=== PATIENT | male | born 1990 | race Caucasian/White ===

== ENCOUNTER → 2020-06-11 14:02 | Outpatient (CLI) | payer BC, SELFPAY ==
[2020-06-11 15:41] LABS: Coronavirus 19 IgG Antibody Negative (Negative); Coronavirus 19 IgM Antibody Negative (Negative)
== END ==
PROVIDERS: Visit Provider Urology
DX: Z01.818 Encounter for other preprocedural examination (principal); Z30.2 Encounter for sterilization; Z20.828 Contact with and (suspected) exposure to other viral communicable diseases
CPT/HCPCS: 36415; 86328

== ENCOUNTER 2020-06-12 09:28 | Day surgery (SDC) | payer BC, SELFPAY ==
[2020-06-09 10:29] VITALS: BMI 34.5
[2020-06-12 09:40] VITALS: BP 123/85; PULSE 73; RESP 18; TEMP 36.2; O2SAT 99
[2020-06-12 10:31] VITALS: BP 131/76; PULSE 58; RESP 18; TEMP 36.7; O2SAT 97
[2020-06-12 10:44] VITALS: BP 144/83; PULSE 64; RESP 18; O2SAT 97
--- NOTE | 2020-06-12 16:12 | HMH.OPNOTE ---
Date of procedure: 06/12/20 Pre-op Diagnosis:: Desires sterilization Post-op Diagnosis:: Same Procedure performed:: Bilateral vasectomy Surgeon:: Paras Jasso MD Anesthesia: local Estimated blood loss (mL): 2 Clinical Note:: 30-year-old white male seen recently for vasectomy consultation. Patient presents for procedure today Operative findings:: Patient with normal scrotal and testicular examination. Procedure went well and no complications were encountered. Operative note:: Patient taken to the vasectomy suite after informed consent was obtained. On the stretcher he was prepped and draped in the standard surgical fashion. Physical examination of the scrotum and testicles were normal. The left vas was palpated and brought up to the anterior and superior midline raphae. Local anesthetic was placed under the midline raphae and around the left basal structure. After adequate analgesia a midline incision was made and a tenaculum was then used to grasp the left vas and it was brought up through the incision. The vasal sheath was then incised and the vas proper was dissected from its adventitial layer. 1 Hemoclip was placed distally and 2 were placed proximally on the vasa. A 1 cm segment was then excised and the vasa lumens were cauterized. Hemostasis achieved and the left vas dropped back in the left hemiscrotum. The right vas was then brought up to the midline raphae and local anesthetic was placed. Identical procedure was performed as on the left side. Stasis achieved in the right vas dropped back into the hemiscrotum. A 3-0 chromic was placed into the skin and a horizontal mattress fashion. A compression dressing was then applied. The patient tolerated procedure well and there is minimal blood loss. Condition: stable Disposition: same day Specimens:: vasal segments were not sent to pathology Complications:: None
== END 2020-06-12 10:44 | disposition home or self-care (01) ==
PROVIDERS: PCP Pediatrics; Visit Provider Urology
PROC: (CPT 55250; principal; 2020-06-12 10:00)
DX: Z30.2 Encounter for sterilization (principal)
CPT/HCPCS: 55250

== ENCOUNTER 2021-06-26 13:48 | Emergency (ER) | payer OTHER, SELFPAY ==
--- NOTE | 2021-06-26 13:47 | ECG_ITS ---
APPROVED REPORT Exam: Resting ECG HR:71 bpm ECG Measurements Heart Rate 71 AXES VT 162 P 41 QRSd 105 QRS 92 QT 365 T 20 QTc 387 Conclusion SINUS RHYTHM BORDERLINE RIGHT AXIS DEVIATION [QRS AXIS > 90] BORDERLINE ECG UNCONFIRMED REPORT Electronically signed by : Young Singh MD 07/01/2021 19:07:15
[2021-06-26 14:00] VITALS: BP 166/100; PULSE 76; RESP 16; O2SAT 99
[2021-06-26 14:01] VITALS: BMI 28.7
--- NOTE | 2021-06-26 14:02 | XR_ITS ---
PROCEDURE INFORMATION: Exam: XR Chest Exam date and time: 06/26/2021 2:02 PM Age: 31 years old Clinical indication: Other: Center of chest, sharp pain with deep breath; Additional info: Chest pain TECHNIQUE: Imaging protocol: XR of the chest. Views: 2 views. COMPARISON: No relevant prior studies available. FINDINGS: Airway: Patent Lungs: Unremarkable. No consolidation. Pleural spaces: Unremarkable. No pleural effusion. No pneumothorax. Heart/Mediastinum: Unremarkable. No cardiomegaly. Bones/joints: No acute skeletal abnormality or aggressive osseous lesion. IMPRESSION: No acute findings.
[2021-06-26 14:10] VITALS: BP 169/107; PULSE 67; RESP 16; TEMP 36.8; O2SAT 99; BMI 29.5
[2021-06-26 14:15] LABS: Basophils # 0.1 K/mm3 (0-0.2); Basophils % 1.1 % (0.1-2.0); Eosinophils # 0.1 K/mm3 (0.0-0.4); Eosinophils % 1.3 % (0.1-12.0); Hematocrit 49.4 % (42.0-52.0); Hemoglobin 16.1 g/dL (14.1-18.0); Lymphocytes # 1.7 K/mm3 (0.7-4.5); Lymphocytes % 17.6 % (10-50); Mean Corpuscular HGB Conc 32.6 g/dL (31.8-35.4); Mean Platelet Volume 9.1 fl (7.4-10.4); Monocytes # 0.3 K/mm3 (0.1-1.0); Monocytes % 3.1 % (1.7-9.3); Neutrophils # 7.5 K/mm3 (1.8-7.8); Neutrophils % 76.9 % (37.0-80.0); Platelet Count 338 K/mm3 (142-424); Red Blood Count 5.37 M/mm3 (4.60-6.20); Red Cell Distribution Width 13.5 % (11.5-17.5); White Blood Count 9.7 K/mm3 (4.8-10.8)
[2021-06-26 14:17] LABS: Chloride 100 mmol/L (98-107); Potassium 3.7 mmoL/L (3.5-5.1); Sodium 137 mmol/L (136-145)
[2021-06-26 14:20] LABS: Blood Urea Nitrogen 18 mg/dl (9-20); Creatinine Clearance Estimated 199 mL/min (50-200); Estimated Glomerular Filt Rate 114 ml/min (>60); GFR (African American) 137 ML/MIN (>60)
[2021-06-26 14:21] LABS: Anion Gap 11.7 mEq/L (5-15); Calcium 10.6 mg/dl (8.4-10.2); Carbon Dioxide 29 mmol/L (22.0-30.0); Glucose 113 mg/dl (74-100)
[2021-06-26 14:30] VITALS: BP 163/101; PULSE 78; RESP 17; O2SAT 97
[2021-06-26 14:34] LABS: Troponin I < 0.01 ng/ml (0.00-0.034)
[2021-06-26 15:00] VITALS: BP 142/89; PULSE 71; RESP 16; O2SAT 98
--- NOTE | 2021-06-26 15:58 | HMH.EDGENADL ---
ED Disposition Clinical Impression: Atypical chest pain Disposition: Home, Self-Care Condition on Discharge: Good Prescriptions: Sucralfate [Carafate 1gm/10mL Susp] 10 ml PO ACHS #1000 ml Transmission Status: Received by [id number] Referrals: Sb Kurtz [Primary Care Provider] - - Critical Care Critical Care Time: No Attestation: On 06/26/21, the high probability of a clinically significant, sudden or life threatening deterioration of the following system(s) required my full and direct attention, intervention and personal management. The time I documented below is in addition to time spent performing reported procedures but includes the following listed in this critical care notation. Medical Decision Making - Medical Records Medical records reviewed: Yes: I reviewed the patient's medical records. - Yossi Inquiry Pt receiving controlled substance: No Vital Signs: 06/26/21 14:00 06/26/21 14:10 06/26/21 14:30 Temperature 98.2 F Temperature Source Oral Pulse Rate 76 78 Pulse Rate [Left Radial] 67 Respiratory Rate 16 16 17 Blood Pressure 166/100 H 163/101 H Blood Pressure [Right Arm] 169/107 H Blood Pressure Mean 130 121 Blood Pressure Mean [Right Arm] 127 02 Sat by Pulse Oximetry 99 99 97 Oxygen Delivery Method Room Air 06/26/21 15:00 06/26/21 16:02 Temperature 98.3 F Temperature Source Oral Pulse Rate 71 77 Pulse Rate [Left Radial] Respiratory Rate 16 16 Blood Pressure 142/89 H 159/89 H Blood Pressure [Right Arm] Blood Pressure Mean 106 Blood Pressure Mean [Right Arm] 02 Sat by Pulse Oximetry 98 Oxygen Delivery Method Room Air - Lab Data Lab Results 06/26/21 13:50: WBC 9.7, RBC 5.37, Hgb 16.1, Hct 49.4, MCV 92.0, MCH 30.0, MCHC 32.6, RDW 13.5, Plt Count 338, MPV 9.1, Neut % (Auto) 76.9, Lymph % (Auto) 17.6, [place] % (Auto) 3.1, Eos % (Auto) 1.3, Baso % (Auto) 1.1, Neut # (Auto) 7.5, Lymph # (Auto) 1.7, [place] # (Auto) 0.3, Eos # (Auto) 0.1, Baso # (Auto) 0.1 06/26/21 13:50: Sodium 137, Potassium 3.7, Chloride 100, Carbon Dioxide 29, Anion Gap 11.7, BUN 18, Creatinine 0.80, Estimated Creat Clear 199, Estimated GFR 114, Est GFR ( Amer) 137, Glucose 113 H, Calcium 10.6 H, Troponin I < 0.01 Result diagrams: 06/26/21 13:50 06/26/21 13:50 Orders (Tests/Meds): ED MEDICATIONS Discontinued Medications Generic Name Dose Route Start Last Admin Trade Name Enrrique PRN Reason Stop Dose Admin Aspirin 162 mg 06/26/21 14:02 06/26/21 14:06 Aspirin 81mg Chewable Tablet PO 06/26/21 14:03 162 mg ONCE ONE Administration Belladonna Alkaloids 60 ml 06/26/21 14:02 06/26/21 14:06 Gi Cocktail 60ml Udc PO 06/26/21 14:03 60 ml ONCE ONE Administration Famotidine 20 mg 06/26/21 14:02 06/26/21 14:07 Famotidine 20mg Tablet PO 06/26/21 14:03 20 mg ONCE ONE Administration Sodium Chloride 1,000 mls @ 999 mls/hr 06/26/21 14:15 06/26/21 14:08 Sod Chlor 0.9% 1000ml Bag IV 06/26/21 15:15 999 mls/hr .Q1H1M SIERRA Administration Metoclopramide HCl 10 mg 06/26/21 14:02 06/26/21 14:07 Metoclopramide 10mg Tablet PO 06/26/21 14:03 10 mg ONCE ONE Administration Ondansetron HCl 4 mg 06/26/21 14:02 06/26/21 14:07 Ondansetron 4mg/2ml Vial IV 06/26/21 14:03 4 mg ONCE ONE Administration ORDERS Category Date Time Status Troponin I Q3H Lab 06/26/21 17:15 Ordered Troponin I Q3H Lab 06/26/21 20:15 Ordered Medical Decision Narrative: Patient is a 31-year-old male who is otherwise healthy presents ED today for further evaluation of chest pain. Patient instructed to come in by his primary care physician's office with concern for possible pulmonary embolism as the stated reason, it appears the patient has been worked up for chest pain in the outpatient setting with a been prescribed him prednisone for him, with a possible diagnosis of bronchitis. We will order a CBC, CMP, troponin, chest x-ray, EKG, GI cocktail a
[2021-06-26 16:02] VITALS: BP 159/89; PULSE 77; RESP 16; TEMP 36.8; O2SAT 97
== END 2021-06-26 16:19 | disposition home or self-care (01) ==
PROVIDERS: Emergency Provider Student in an Organized Health Care Education/Training Program; PCP Pediatrics
DX: R07.89 Other chest pain (principal); K21.9 Gastro-esophageal reflux disease without esophagitis
CPT/HCPCS: 71046; 80048; 84484; 85025; 93005; 96365; 96375; 99283; J2405

== ENCOUNTER 2024-01-14 11:41 | Emergency (ER) | payer OTHER, SELFPAY ==
[2024-01-14 11:57] VITALS: BP 136/97; PULSE 66; RESP 16; TEMP 36.9; O2SAT 100; BMI 34.4
--- NOTE | 2024-01-14 12:12 | EXP.UTC ---
Discharge Plan Disposition Patient Disposition: Home, Self-Care Condition: Good Prescriptions Prescriptions: New hydroxyzine pamoate [Vistaril] 25 mg capsule 25 mg PO Q6H PRN (Reason: itching) Qty: 30 0RF methylprednisolone 4 mg Tablets,Dose Pack 4 mg PO DIRECTED 6 Days Qty: 21 0RF Rx Instructions: Take 1 pack as directed for 6 days triamcinolone acetonide 0.1 % cream 1 applic topical BID PRN (Reason: itching) Qty: 30 0RF Referrals Follow up/Referrals: Sb Kurtz [Primary Care Provider] - See instructions Activity Restrictions/Add. Instructions Additional Instructions/Restrictions: Try to identify and avoid contact with the offending substance. Don't start the oral steroids until tomorrow. The vistaril (hydroxyzine) will make you drowsy, so don't drive or operate heavy machinery after taking it. Don't put the topical steroids (triamcinolone) on your face or your groin. Follow up with your regular doctor. GO TO THE ER FOR ANY WORSENING SYMPTOMS OR CONCERNS Clinical Impressions Clinical Impression: Acute viral syndrome, Allergic reaction Stand Alone Forms Stand Alone Forms: Work/School Release Instructions Patient Instructions: DI for General Allergic Reactions, Triamcinolone Topical, Methylprednisolone, Hydroxyzine Print Language Print Language: Turkish Discharge ED Provider: Aneudy Warner [facility] General Stated complaint: rash on body, fever Mode of Arrival: Ambulatory Source of Information: Patient Limitations: No Limitations Time Seen by Provider: 01/14/24 12:12 HEENT Symptoms (Recalled from RN notes): No Resp Symptoms (Recalled from RN notes): No Skin Symptoms (Recalled from RN notes): Yes (red raised rash on patsy hands/feet, abd, back, buttocks and chest) MS Symptoms (Recalled from RN notes): No Functional Status (Recalled from RN notes): n/a History of Present Illness Provider Complaint: Pt has a red, raised rash on patsy hands, patsy feet, back, buttocks, abd and chest. Pt reports rash began night of last week. Pt also reports nausea, abd cramping and lower back pain, low grade fever and rash worsening last night. Related Data Previous Rx's ?Medication ?Instructions ?Recorded hydroxyzine pamoate 25 mg capsule 25 mg PO Q6H PRN itching #30 caps 01/14/24 (Vistaril) methylprednisolone 4 mg tablets in 4 mg PO DIRECTED 6 days #21 tabs 01/14/24 a dose pack triamcinolone acetonide 0.1 % 1 applic topical BID PRN itching 01/14/24 topical cream #30 grams Allergies Allergy/AdvReac Type Severity Reaction Status Date / Time No Known Allergies Allergy Verified 06/09/20 10:27 Worker's Comp Is this a Worker's Comp case?: No [facility] Disclaimer: The information contained in this section may have been updated after the patient was seen, as this information can be updated by other users. Social History Smoking Status: Never smoker alcohol intake: never substance use type: denies use current occupational status: employed Travel in the last 8 weeks: None household members: family housing: house current occupation: driller current occupational exposures/hazards: No caffeine: Yes ROS Obtained: Yes All systems reviewed & no additional complaints except as documented Constitutional Constitutional: Reports chills and Reports fever(s) Eyes Eyes: Denies eye discharge ENT Ears, Nose, Mouth, and Throat: Reports as per HPI Cardiovascular Cardiovascular: Denies chest pain Respiratory Respiratory: Denies chest congestion and Reports cough Gastrointestinal Gastrointestingal: Reports nausea; Denies abdominal pain, constipation, cramping, diarrhea or vomiting Musculoskeletal Musculoskeletal: Denies arthralgias Integumentary/Breasts Skin/Breast: Reports as per HPI and Reports rash Neurologic Neurologic: Denies paresthesias Physical Exam General General appearance: alert and in no apparent distress Head Head exam: atrau
[2024-01-14 12:49] VITALS: BP 136/97; PULSE 66; RESP 16; TEMP 36.9; O2SAT 100
== END 2024-01-14 12:50 | disposition home or self-care (01) ==
PROVIDERS: Emergency Provider Nurse Practitioner Family; PCP Pediatrics
DX: R21 Rash and other nonspecific skin eruption (principal); R50.9 Fever, unspecified; T78.40XA Allergy, unspecified, initial encounter; B34.9 Viral infection, unspecified
CPT/HCPCS: 99204; 99212; G0463

== ENCOUNTER 2024-02-01 09:23 | Emergency (ER) | payer OTHER, SELFPAY ==
[2024-02-01 09:25] VITALS: BP 144/95; PULSE 76; RESP 19; TEMP 36.7; O2SAT 97; BMI 34.5
--- NOTE | 2024-02-01 09:28 | PC.NURSE ---
When patient was brought back was immediately put in C-collar.
[2024-02-01 09:32] VITALS: PULSE 73; RESP 16; O2SAT 97
--- NOTE | 2024-02-01 09:41 | PC.NURSE ---
DR ENGLE AT BEDSIDE
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
[2024-02-01] MEDS: ONDANSETRON 4MG ODT 4 MG SL (10:01)
[2024-02-01] MEDS: METHOCARBAMOL 500MG TABLET 500 MG PO (10:01)
[2024-02-01] MEDS: ACETAMINOPHEN 500MG TAB 1000 MG PO (10:01)
[2024-02-01] MEDS: KETOROLAC 30MG/ML VIAL 30 MG IM (10:02)
[2024-02-01 10:30] VITALS: BP 126/77; PULSE 63; RESP 18; O2SAT 97
[2024-02-01 11:26] VITALS: BP 127/87; PULSE 79; RESP 17; TEMP 36.7; O2SAT 98
== END 2024-02-01 11:30 | disposition home or self-care (01) ==
PROVIDERS: Emergency Provider Emergency Medicine; PCP Pediatrics
DX: S06.0X0A Concussion without loss of consciousness, initial encounter (principal); S00.03XA Contusion of scalp, initial encounter; S16.1XXA Strain of muscle, fascia and tendon at neck level, initial encounter; S39.012A Strain of muscle, fascia and tendon of lower back, initial encounter; V49.40XA Driver injured in collision with unspecified motor vehicles in traffic accident, initial encounter; Y92.410 Unspecified street and highway as the place of occurrence of the external cause
CPT/HCPCS: 70450; 71045; 72125; 72128; 72131; 96372; 99285; J1885; Q0162